=== PATIENT | female | born 1955 | race Caucasian/White ===

== ENCOUNTER 2022-11-21 22:03 | Emergency (ER) | payer MEDICARE, SELFPAY ==
--- NOTE | ~2022-11-21 | XR_ITS ---
EXAMINATION: XR ankle RT min 3V DATE: 11/21/2022 22:29 INDICATION: Right ankle pain TECHNIQUE: Anteroposterior, oblique, mortise, and lateral views of the right ankle were obtained. COMPARISON: None. FINDINGS: Alignment is normal. No fracture. 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 Small Achilles calcaneal spur. Soft tissues are unremarkable with no ankle joint effusion.. IMPRESSION: 1. 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 No acute osseous abnormality. Reviewed, dictated and finalized at location A. IMPRESSION: 1. 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 No acute osseo us abnormality.
[2022-11-21 22:10] VITALS: BP 193/104; PULSE 101; RESP 18; TEMP 36.8; O2SAT 100
--- NOTE | 2022-11-21 23:27 | ED.LOWEXIN ---
HPI - Extremity Injury (Lower) General Chief Complaint: Extremity Injury, Lower Stated Complaint: right foot pain injury last week Time Seen by Provider: 11/21/22 22:46 History of Present Illness HPI Narrative: 67-year-old female reports for evaluation of right ankle pain x1 week. Patient states about a week ago, she accidentally hit the lateral aspect of her ankle on her bed. States she was walking multiple days following injuring her ankle which caused worsening of her pain. She is reporting swelling to the lateral malleolus and bruising to the lateral aspect of her foot. States she has been ambulating on her foot with mild difficulty. She reports swelling that occurs after she has been standing for long periods of time. Denies fever, body aches, chills, leg pain, chest pain or shortness of breath. Related Data Allergies Allergy/AdvReac Type Severity Reaction Status Date / Time No Known Allergies Allergy Mild Verified 11/21/22 22:04 Review of Systems Review of Systems: CONSTITUTIONAL: Denies fever, chills EYES: Denies visual changes, redness, or discharge. ENT: Denies rhinorrhea, congestion, sore throat, or otalgia. CARDIOVASCULAR: Denies chest pain, palpitations, or edema. RESPIRATORY: Denies cough or dyspnea. GASTROINTESTINAL: Denies abdominal pain, nausea, vomiting, or diarrhea. GENITOURINARY: Denies dysuria or hematuria. SKIN: Denies rash or itching. MUSCULOSKELETAL: See HPI NEUROLOGIC: Denies headache, numbness, dizziness, or weakness. PSYCHIATRIC: Denies anxiety or depression. Exam Narrative: GENERAL: Well-appearing, in no acute distress. HEAD: Normocephalic NECK: Supple. CHEST: No respiratory distress. Clear to auscultation, no adventitious breath sounds. HEART: Regular rate and rhythm. No murmur heard. Normal peripheral pulses. ABDOMEN: Soft, nontender, normal active bowel sounds. EXTREMITIES: RLE: Tenderness with mild edema to the lateral malleolus. There is ecchymosis inferior to the lateral malleolus. No calf tenderness, negative high squeeze. No other overlying skin changes or warmth. DP pulse 2+. Cap refill less than 2. Sensation intact throughout. Patient has full range of motion of toes and ankle. SKIN: Warm, dry, no rash. NEURO: No focal deficits. Alert and oriented x3. PSYCH: Normal mood and affect. Course Vital Signs Vital signs: Vital Signs Temperature 98.3 F 11/21/22 22:10 Pulse Rate 101 H 11/21/22 22:10 Respiratory Rate 18 11/21/22 22:10 Blood Pressure 193/104 H 11/21/22 22:10 Pulse Oximetry 100 11/21/22 22:10 Oxygen Delivery Room Air 11/21/22 22:10 Temperature 98.3 F 11/21/22 22:10 Pulse Rate 101 H 11/21/22 22:10 Respiratory Rate 18 11/21/22 22:10 Blood Pressure 193/104 H 11/21/22 22:10 Pulse Oximetry 100 11/21/22 22:10 Oxygen Delivery Room Air 11/21/22 22:10 MDM - Extremity Injury (Lower) MDM Narrative Medical decision making narrative: 67-year-old female reports for evaluation of right ankle pain after she hit it on a dresser approximately 1 week ago. Exam reveals tenderness to the right lateral malleolus with ecchymosis inferior to the malleolus and mild edema. Full range of motion of ankle and foot, she is neurovascularly intact. X-rays without acute osseous abnormality. Patient provided with Tylenol and an Myles wrap in the ED. She is able to ambulate and declines crutches. Encouraged her to take ibuprofen and Tylenol for pain, RICE, follow-up with her PCP within the following week for reevaluation. Strict ED return precautions discussed. Patient agrees to the plan verbalizes understanding. Discharged in stable condition. Discharge Plan Discharge Clinical Impression: Ankle contusion Qualifiers: Encounter type: initial encounter Laterality: right Qualified Code(s): S90.01XA - Contusion of right ankle, initial encounter Patient Disposition: Home, Self-Care Condition: Stable Instructions: Antibiotic Form Addit
[2022-11-21 23:32] VITALS: BP 168/74; PULSE 86; RESP 16; O2SAT 94
[2022-11-21] MEDS: ACETAMINOPHEN 500 MG TABLET 1000 MG PO (23:48)
== END 2022-11-22 | disposition home or self-care (01) ==
PROVIDERS: Emergency Provider Physician Assistant
DX: S90.01XA Contusion of right ankle, initial encounter (principal); W22.03XA Walked into furniture, initial encounter
CPT/HCPCS: 73610; 99283; A9270

== ENCOUNTER 2024-12-13 11:25 | Emergency (ER) | payer MEDICARE, SELFPAY ==
--- NOTE | ~2024-12-13 | XR_ITS ---
EXAM/PROCEDURE: XR chest 1V - 12/13/2024 14:51 CDT HISTORY: 69 years old Female with WEAK TECHNIQUE: AP view(s) of the chest. COMPARISON: 01/29/18 FINDINGS: LUNGS/ PLEURA: No focal consolidation. No appreciable pneumothorax or large pleural effusion. Pulmona ry nodule in the left lung base, unchanged. HEART/ MEDIASTINUM: Heart appears normal in size. BONES: Degenerative changes. OTHER: Visualized upper abdomen is unremarkable. Surgical clip seen. IMPRESSION: No acute process. Reviewed, dictated and finalized at location A. IMPRESSION: No acute process.
[2024-12-13 12:05] VITALS: BP 194/94; PULSE 74; RESP 18; TEMP 36.7; O2SAT 93
--- NOTE | 2024-12-13 14:01 | ED_ITS ---
HPI - General Adult General Chief complaint: Nausea/Vomiting/Diarrhea <Fani Obregon PA-C - Last Filed: 12/13/24 14:18> Stated complaint: V/N no aircond in home, HEAT STROKE <Fani Obregon PA-C - Last Filed: 12/13/24 14:18> Time Seen by Provider: 12/13/24 15:15 <Fani Obregon PA-C - Last Filed: 12/13/24 14:18> Focused HPI: 69 year old female presenting with concerns for heat stroke reporting they have not had AC for a few days. She states that she began throwing up this morning and is feeling more weak. She is currently being treated with Doxycycline for right sided facial cellulitis. She denies vision changes, eye pain, pain with EOMs. She also endorses hx of psoriasis. She denies fevers/chills, abdominal pain, diarrhea, cough, or congestion, chest pain, dyspnea. GENERAL: Well-appearing, well-nourished, and in no acute distress. HEAD: Normocephalic, atraumatic. No pain with extraocular movements. Purple scaly rash to the left cheek and nose. Spares the nasolabial folds. Psoriasis plaques to the left mosque. Healing scab wound to the left naris CHEST: Clear to auscultation. ?No respiratory distress. HEART: Regular rate and rhythm.? NEURO: ?Alert and oriented x3. Patient screened in triage and initial orders placed.? ?Additional care and disposition to be based upon?diagnostic testing and treatment. <Fani Obregon PA-C - Last Filed: 12/13/24 14:18> History of Present Illness HPI narrative: per mse <Hakan Singh III, DO - Last Filed: 12/13/24 21:34> Related Data Allergies/adverse reactions: Allergies Allergy/AdvReac Type Severity Reaction Status Date / Time No Known Allergies Allergy Mild Verified 11/21/22 22:04 <Fani Obregon PA-C - Last Filed: 12/13/24 14:18> Review of Systems 2 Review of Systems: All systems reviewed & are unremarkable except as noted in HPI and below <Hakan Singh III, DO - Last Filed: 12/13/24 21:34> Exam 2 Const: General: healthy appearing and no acute distress <Hakan Lauri Singh III, DO - Last Filed: 12/13/24 21:34> Nutritional Appearance: well nourished <Hakan Lauri Singh III, DO - Last Filed: 12/13/24 21:34> Orientation/consciousness: patient oriented x3 <Hakan Lauri Singh III, DO - Last Filed: 12/13/24 21:34> Limitations: no limitations <Hakan Lauri Singh III, DO - Last Filed: 12/13/24 21:34> Eyes: Pupils: Equal, round and reactive pupils present <Hakan Lauri Singh III, DO - Last Filed: 12/13/24 21:34> EOM: EOMs intact bilaterally <Hakan Lauri Singh III, DO - Last Filed: 12/13/24 21:34> Chest: Chest palpation & inspection: normal inspection of the chest < Hakan Lauri Singh III, DO - Last Filed: 12/13/24 21:34> Resp: Effort & Inspection: normal respiratory effort <Hakan Lauri Singh III, DO - Last Filed: 12/13/24 21:34> Auscultation: clear to auscultation bilaterally <Hakan Lauri Singh III, DO - Last Filed: 12/13/24 21:34> Cardio: Rate: regular rate <Hakan Lauri Singh III, DO - Last Filed: 12/13/24 21:34> Rhythm: regular rhythm <Hakan Lauri Singh III, DO - Last Filed: 12/13/24 21:34> GI: GI Palp: Yes Soft to palpation and No Tenderness to palpation present (GI) <Hakan Lauri Singh III, DO - Last Filed: 12/13/24 21:34> Auscultation: normal bowel sounds <Hakan Lauri Singh III, DO - Last Filed: 12/13/24 21:34> Skin: General skin exam: normal color <Hakan Lauri Singh III, DO - Last Filed: 12/13/24 21:34> Rashes: no rashes <Hakan Lauri Singh III, DO - Last Filed: 12/13/24 21:34> Neuro: General: patient oriented x3, moves all extremities, no meningeal signs, no focal motor deficits and CN's II-XI intact bilaterally <Hakan Lauri Singh III, DO - Last Filed: 12/13/24 21:34> Cranial nerves: Yes Nystagmus not present <Hakan Lauri Singh III, DO - Last Filed: 12/13/24 21:34> Speech: normal speech <Hakan Lauri Singh III, DO - Last Filed: 12/13/24 21:34> Extrem: General: normal to inspection and no clubbing, cyanosis or edema < Hakan Lauri Singh III, DO - Last Filed: 12/13/24 21:34> Psych: Mental Status: mental status grossly normal <Hakan Lauri Singh III, DO - Last Filed: 12/13/24 21:34> Affect: normal affect <Hakan Lauri Singh III, DO - Last Filed: 12/13/24 21:34> Attitude: cooperative <Hakan Lauri Singh III, DO - Last Filed: 12/13/24 21:34> Course Vital Signs Vital signs: Vital Signs Temperature 98.1 F 12/13/24 12:05 Pulse Rate 74 12/13/24 12:05 Respiratory Rate 18 12/13/24 12:05 Blood Pressure 194/94 H 12/13/24 12:05 Pulse Oximetry 93 12/13/24 12:05 Oxygen Delivery Room Air 12/13/24 12:05 Temperature 97 F L 12/13/24 14:07 Pulse Rate 81 12/13/24 16:13 Respiratory Rate 23 H 12/13/24 16:13 Blood Pressure 179/86 H 12/13/24 16:13 Pulse Oximetry 96 12/13/24 16:13 Oxygen Delivery Room Air 12/13/24 15:33 <Fani Obregon PA-C - Last Filed: 12/13/24 14:18> Vital Signs Temperature 98.1 F 12/13/24 12:05 Pulse Rate 74 12/13/24 12:05 Respiratory Rate 18 12/13/24 12:05 Blood Pressure 194/94 H 12/13/24 12:05 Pulse Oximetry 93 12/13/24 12:05 Oxygen Delivery Room Air 12/13/24 12:05 Temperature 97 F L 12/13/24 14:07 Pulse Rate 81 12/13/24 16:13 Respiratory Rate 23 H 12/13/24 16:13 Blood Pressure 179/86 H 12/13/24 16:13 Pulse Oximetry 96 12/13/24 16:13 Oxygen Delivery Room Air 12/13/24 15:33 <Hakan Singh III, DO - Last Filed: 12/13/24 21:34> Medical Decision Making MDM Narrative Medical decision making narrative: Pt vomited two times this morning. Pt got zofran out front and now feesl fine. Pt got liter of IVf's. Pt BUN and Cr up. Pt says her Creatinine runs in 2's baseline. K ok. Pt has cool place to stay. home on zofran and follow up. <Hakan Singh III, DO - Last Filed: 12/13/24 21:34> Vital Signs Vital Signs: Vital Signs Temperature 98.1 F 12/13/24 12:05 Pulse Rate 74 12/13/24 12:05 Respiratory Rate 18 12/13/24 12:05 Blood Pressure 194/94 H 12/13/24 12:05 Pulse Oximetry 93 12/13/24 12:05 Oxygen Delivery Room Air 12/13/24 12:05 Temperature 97 F L 12/13/24 14:07 Pulse Rate 81 12/13/24 16:13 Respiratory Rate 23 H 12/13/24 16:13 Blood Pressure 179/86 H 12/13/24 16:13 Pulse Oximetry 96 12/13/24 16:13 Oxygen Delivery Room Air 12/13/24 15:33 <Fani Obregon PA-C - Last Filed: 12/13/24 14:18> Vital Signs Temperature 98.1 F 12/13/24 12:05 Pulse Rate 74 12/13/24 12:05 Respiratory Rate 18 12/13/24 12:05 Blood Pressure 194/94 H 12/13/24 12:05 Pulse Oximetry 93 12/13/24 12:05 Oxygen Delivery Room Air 12/13/24 12:05 Temperature 97 F L 12/13/24 14:07 Pulse Rate 81 12/13/24 16:13 Respiratory Rate 23 H 12/13/24 16:13 Blood Pressure 179/86 H 12/13/24 16:13 Pulse Oximetry 96 12/13/24 16:13 Oxygen Delivery Room Air 12/13/24 15:33 <Hakan Singh III, DO - Last Filed: 12/13/24 21:34> Lab Data Result diagrams: 12/13/24 15:21 12/13/24 15:21 <Fani Obregon PA-C - Last Filed: 12/13/24 14:18> Labs: Lab Results 12/13/24 12/13/24 Range/Units 15:21 16:16 WBC 8.4 (4.5-10.0) K/mm3 RBC 4.66 (4.2-5.4) M/mm3 Hgb 14.1 (12.0-15.0) g/dL Hct 43.2 (37.0-47.0) % MCV 92.7 (80-100) fl MCH 30.3 (26-34) pg MCHC 32.6 (32-36) g/dl RDW 14.0 (11.5-14.5) % Plt Count 273 (150-375) k/mm3 MPV 9.7 (7.4-10.4) fl Immature Gran % (Auto) 0.5 (0-0.5) % Neut % (Auto) 81.4 H (45.5-73.1) % Lymph % (Auto) 14.3 L (18.3-44.2) % [place] % (Auto) 3.1 (2.6-8.5) % Eos % (Auto) 0.1 (0-4.4) % Baso % (Auto) 0.6 (0.2-1.2) % Lymph # (Auto) 1.21 (0.9-3.2) K/mm3 [place] # (Auto) 0.3 (0.1-0.6) K/mm3 Eos # (Auto) 0.0 (0-0.3) K/mm3 Baso # (Auto) 0.1 (0.0-0.1) K/mm3 Abs Immat Gran (auto) 0.04 H (0.00-0.031) K/mm3 Absolute Neuts (auto) 6.9 H (1.3-6.7) K/mm3 Absolute Nucleated RBC 0.000 (0.0-0.012) K/mm3 Nucleated RBC % 0.0 (0.0-0.2) % Sodium 134 L (137-145) mmol/L Potassium 4.0 (3.4-5.0) mmol/L Chloride 96 L (98-107) mmol/L Carbon Dioxide 24 (22-30) mmol/L Anion Gap 14 H (4-12) mmol/L BUN 39 H (7-17) mg/dL Creatinine 2.22 H (0.7-1.0) mg/dL Estim Creat Clear Calc 21 ml/min Estimated GFR 22 L (59 - ) Glucose 121 H (65-110) mg/dL Calcium 10.2 (8.4-10.2) mg/dL Total Bilirubin 0.5 (0.2-1.3) mg/dL AST 34 (14-36) U/L ALT 21 (6-35) U/L Alkaline Phosphatase 93 (38-126) U/L Total Protein 9.3 H (6.3-8.2) g/dL Albumin 5.2 H (3.5-5.1) g/dL Lipase 491 H (23-300) U/L Urine Color Yellow (Yellow) Urine Appearance Clear (Clear) Urine pH 7.5 (5.0-9.0) Ur Specific [place] 1.015 (1.001-1.035) Urine Protein 3+ H (Negative) mg/dL Urine Glucose (UA) 2+ H (Negative) mg/dL Urine Ketones Negative (Negative) mg/dL Ur Blood (Man) Trace (Negative) Urine Nitrate Negative (Negative) Urine Bilirubin Negative (Negative) Urine Urobilinogen 0.2 (<2.0) mg/dL Leukocyte Esterase Rfl 1+ H (Negative) AJ/UL Urine RBC 3-5 H (0-2) /hpf Urine WBC 6-10 H (0-3) /hpf Ur Squamous Epith Cells Few (Few) /hpf Urine Bacteria None seen /hpf Urine Casts 0-2 <Fani Obregon PA-C - Last Filed: 12/13/24 14:18> Lab Results 12/13/24 12/13/24 Range/Units 15:21 16:16 WBC 8.4 (4.5-10.0) K/mm3 RBC 4.66 (4.2-5.4) M/mm3 Hgb 14.1 (12.0-15.0) g/dL Hct 43.2 (37.0-47.0) % MCV 92.7 (80-100) fl MCH 30.3 (26-34) pg MCHC 32.6 (32-36) g/dl RDW 14.0 (11.5-14.5) % Plt Count 273 (150-375) k/mm3 MPV 9.7 (7.4-10.4) fl Immature Gran % (Auto) 0.5 (0-0.5) % Neut % (Auto) 81.4 H (45.5-73.1) % Lymph % (Auto) 14.3 L (18.3-44.2) % [place] % (Auto) 3.1 (2.6-8.5) % Eos % (Auto) 0.1 (0-4.4) % Baso % (Auto) 0.6 (0.2-1.2) % Lymph # (Auto) 1.21 (0.9-3.2) K/mm3 [place] # (Auto) 0.3 (0.1-0.6) K/mm3 Eos # (Auto) 0.0 (0-0.3) K/mm3 Baso # (Auto) 0.1 (0.0-0.1) K/mm3 Abs Immat Gran (auto) 0.04 H (0.00-0.031) K/mm3 Absolute Neuts (auto) 6.9 H (1.3-6.7) K/mm3 Absolute Nucleated RBC 0.000 (0.0-0.012) K/mm3 Nucleated RBC % 0.0 (0.0-0.2) % Sodium 134 L (137-145) mmol/L Potassium 4.0 (3.4-5.0) mmol/L Chloride 96 L (98-107) mmol/L Carbon Dioxide 24 (22-30) mmol/L Anion Gap 14 H (4-12) mmol/L BUN 39 H (7-17) mg/dL Creatinine 2.22 H (0.7-1.0) mg/dL Estim Creat Clear Calc 21 ml/min Estimated GFR 22 L (59 - ) Glucose 121 H (65-110) mg/dL Calcium 10.2 (8.4-10.2) mg/dL Total Bilirubin 0.5 (0.2-1.3) mg/dL AST 34 (14-36) U/L ALT 21 (6-35) U/L Alkaline Phosphatase 93 (38-126) U/L Total Protein 9.3 H (6.3-8.2) g/dL Albumin 5.2 H (3.5-5.1) g/dL Lipase 491 H (23-300) U/L Urine Color Yellow (Yellow) Urine Appearance Clear (Clear) Urine pH 7.5 (5.0-9.0) Ur Specific [place] 1.015 (1.001-1.035) Urine Protein 3+ H (Negative) mg/dL Urine Glucose (UA) 2+ H (Negative) mg/dL Urine Ketones Negative (Negative) mg/dL Ur Blood (Man) Trace (Negative) Urine Nitrate Negative (Negative) Urine Bilirubin Negative (Negative) Urine Urobilinogen 0.2 (<2.0) mg/dL Leukocyte Esterase Rfl 1+ H (Negative) AJ/UL Urine RBC 3-5 H (0-2) /hpf Urine WBC 6-10 H (0-3) /hpf Ur Squamous Epith Cells Few (Few) /hpf Urine Bacteria None seen /hpf Urine Casts 0-2 <Hakan Singh III, DO - Last Filed: 12/13/24 21:34> Discharge Plan Discharge Clinical Impression: Gastroenteritis <Fani Obregon PA-C - Last Filed: 12/13/24 14:18> Patient Disposition: Home <AUTUMN Torres Last Filed: 12/13/24 14:18> Condition: Improved <AUTUMN Torres Last Filed: 12/13/24 14:18> Instructions: Antibiotic Form, Gastroenteritis (ED), Acute Nausea and Vomiting (ED) <AUTUMN Torres Last Filed: 12/13/24 14:18> Additional Instructions: follow up with pcp to get kidney numbers rechecked <AUTUMN Torres Last Filed: 12/13/24 14:18> Patient Language: Malaysian <AUTUMN Torres Last Filed: 12/13/24 14:18> Prescriptions: New ondansetron 4 mg tablet,disintegrating 4 mg PO Q8H PRN (Reason: nausea and vomiting) Qty: 14 0RF <Fani Obregon PA-C - Last Filed: 12/13/24 14:18> Follow-up/Referrals: PHYSICIAN NOT ON STAFF,NONSTAFF [Primary Care Provider] - <Fani Obregon PA-C - Last Filed: 12/13/24 14:18>
[2024-12-13 14:07] VITALS: BP 185/60; PULSE 67; RESP 18; TEMP 36.1; O2SAT 100
--- NOTE | 2024-12-13 14:08 | ECG_ITS ---
Test Date: 2024-12-13 15:56:05 Measurements Intervals [place] Rate: 69 P: 23 [place]: 141 QRS: 1 QRSD: 85 T: 72 QT: 433 QTc: 467 Interpretive Statements SINUS RHYTHM LEFT VENTRICULAR HYPERTROPHY WITH ST-T CHANGE MINIMAL Q WAVES- HIGH LATERAL LEADS BASELINE ARTIFACT- I, II, III, AVR, AVL, AVF BORDERLINE ECG No previous ECG available for comparison Electronically Signed On 12-13-2024 16:58:46 CDT by Dave Traore D.O.
[2024-12-13] MEDS: ONDANSETRON HCL ODT 4 MG TABLET PO (14:11)
[2024-12-13 15:28] LABS: Basophils Absolute Auto 0.1 K/mm3 (0.0-0.1); Basophils Percent Auto 0.6 % (0.2-1.2); Eosinophils Percent Auto 0.1 % (0-4.4); Hematocrit 43.2 % (37.0-47.0); Hemoglobin 14.1 g/dL (12.0-15.0); Immature Granulocyte Absolute 0.04 K/mm3 (0.00-0.031); Immature Granulocyte Percent A 0.5 % (0-0.5); Lymphocytes Absolute Auto 1.21 K/mm3 (0.9-3.2); Lymphocytes Percent Auto 14.3 % (18.3-44.2); Mean Corpuscular HGB Conc 32.6 g/dl (32-36); Mean Corpuscular Hemoglobin 30.3 pg (26-34); Mean Corpuscular Volume 92.7 fl (80-100); Mean Platelet Volume 9.7 fl (7.4-10.4); Monocytes Absolute Auto 0.3 K/mm3 (0.1-0.6); Monocytes Percent Auto 3.1 % (2.6-8.5); Neutrophils Absolute Auto 6.9 K/mm3 (1.3-6.7); Neutrophils Percent Auto 81.4 % (45.5-73.1); Platelet Count Result 273 k/mm3 (150-375); Red Blood Count 4.66 M/mm3 (4.2-5.4); White Blood Count 8.4 K/mm3 (4.5-10.0)
[2024-12-13 15:33] VITALS: BP 186/74; PULSE 65; PULSE 75; RESP 18; O2SAT 94
[2024-12-13 15:39] LABS: Alanine Aminotransferase 21 U/L (6-35); Albumin Level 5.2 g/dL (3.5-5.1); Alkaline Phosphatase 93 U/L (38-126); Anion Gap 14 mmol/L (4-12); Aspartate Amino Transferase 34 U/L (14-36); Bilirubin,Total 0.5 mg/dL (0.2-1.3); Blood Urea Nitrogen 39 mg/dL (7-17); Calcium 10.2 mg/dL (8.4-10.2); Carbon Dioxide 24 mmol/L (22-30); Chloride 96 mmol/L (98-107); Estimated CRCL calculation 21 ml/min; Estimated Glomerular Filt Rate 22; Glucose 121 mg/dL (65-110); Lipase 491 U/L (23-300); Sodium 134 mmol/L (137-145); Total Protein 9.3 g/dL (6.3-8.2)
[2024-12-13] MEDS: SODIUM CHLORIDE 0.9% IV 1,000 ML 999 ML IV CONT (15:43)
[2024-12-13 16:13] VITALS: BP 179/86; PULSE 81; RESP 23; O2SAT 96
[2024-12-13 16:30] LABS: Add Urine Microscopic? YES; Appearance Urine Clear (Clear); Bacteria Urine None Seen /hpf; Bilirubin Urine Negative (Negative); Blood Urine Trace (Negative); Color Urine Yellow (Yellow); Glucose Urine UA 2+ mg/dL (Negative); Ketones Urine Negative (Negative); Leukocyte Esterase Ur 1+ LEU/UL (Negative); Nitrate Urine Negative (Negative); Non Pathogenic Casts 0-2; Protein Urine 3+ mg/dL (Negative); Specific Grav Ur 1.015 (1.001-1.035); Squamous Epithelial Cell Urine Few /hpf (Few); Urobilinogen Urine 0.2 mg/dL (<2.0); pH Urine 7.5 (5.0-9.0)
== END 2024-12-13 17:30 | disposition home or self-care (01) ==
PROVIDERS: Physician Assistant; Emergency Provider Emergency Medicine
DX: K52.9 Noninfective gastroenteritis and colitis, unspecified (principal); I51.7 Cardiomegaly
CPT/HCPCS: 36415; 71045; 80053; 81001; 83690; 85025; 87077; 87086; 87147; 87186; 93005; 96360; 99283; A9270; J7030